=== PATIENT | female | born 1965 | race Caucasian/White ===

== ENCOUNTER 2018-10-18 13:32 | Outpatient (CLI) | payer OTHER | END 2018-10-18 13:33 | disposition home or self-care (01) | LOC: C.RADIC 13:32 | DX: R76.11 Nonspecific reaction to tuberculin skin test without active tuberculosis (principal) ==

== ENCOUNTER 2018-10-26 08:42 | Outpatient (CLI) | payer OTHER | END 2018-10-26 08:43 | disposition home or self-care (01) | LOC: C.MAMMO 08:43 ==